=== PATIENT | female | born 1945 | race Caucasian/White ===

== ENCOUNTER 2018-05-09 08:52 | Day surgery (SDC) | payer BC ==
[2018-05-04 11:37] VITALS: BMI 28.3
[2018-05-09 10:11] LABS: BASO # 0.04 K/mm3 (0.0-2.0); BASO % 0.7 % (0.0-3.0); EOS # 0.1 (0.0-0.7); EOS % 2.1 % (1.5-5.0); HEMOGLOBIN 16.1 g/dL (12.0-16.0); LYMPH # 1.4 (1.2-3.4); LYMPH % 24.4 % (22.0-35.0); MEAN CELL VOLUME 86.2 fl (80.0-105.0); MEAN CORPUSCULAR HEMOGLOBIN 28.1 pg (25.0-35.0); MEAN CORPUSCULAR HGB CONC 32.7 g/dl (31.0-37.0); MEAN PLATELET VOLUME 8.6 fl (7.0-11.0); MONO # 0.2 (0.1-0.6); MONO % 3.7 % (1.0-6.0); RBC 5.72 10^6/uL (3.5-6.1); RED CELL DISTRIBUTION WIDTH 13.4 % (11.5-14.5); WHITE BLOOD COUNT 5.7 10^3/uL (4.5-11.0)
[2018-05-09 10:19] LABS: BLOOD UREA NITROGEN 15 mg/dL (7-21); CALCIUM 9.2 mg/dL (8.4-10.5); GFR NON-AFRICAN AMERICAN > 60
[2018-05-09 10:26] LABS: INR 1.07; PARTIAL THROMBOPLASTIN TIME 41.4 Seconds (26.9-38.3); PROTHROMBIN TIME 12.1 SECONDS (9.4-12.5)
[2018-05-09] MEDS ORDERED: Lidocaine 1% Inj (20ml) ONE (10:56)
[2018-05-09] MEDS ORDERED: Midazolam 2 MG/2 ML VIAL ONE (11:12)
[2018-05-09] MEDS ORDERED: Midazolam 5 MG/5 ML VIAL IVP ONE (11:55)
[2018-05-09] MEDS ORDERED: Oxycodone/Acetaminophen 5/325 mg Tab PO PRN (12:13)
[2018-05-09] MEDS ORDERED: Sodium Chloride 0.45% 1,000 ML IV SCH (12:15)
[2018-05-09 13:15] VITALS: RESP 20
[2018-05-09 13:23] VITALS: TEMP 97.8; O2SAT 96
--- NOTE | 2018-05-09 13:49 | RAD ---
Date of service: 05/09/2018 HISTORY: RLL lung Bx COMPARISON: No prior. TECHNIQUE: 1 view obtained. FINDINGS: LUNGS: No active pulmonary disease. PLEURA: No significant pleural effusion identified, no pneumothorax apparent. CARDIOVASCULAR: Aortic calcification Normal cardiac size. No pulmonary vascular congestion. OSSEOUS STRUCTURES: No significant abnormalities. VISUALIZED UPPER ABDOMEN: Normal. OTHER FINDINGS: None. IMPRESSION: No evidence of post biopsy pneumothorax
[2018-05-09 14:01] VITALS: BP 132/80; PULSE 66
--- NOTE | 2018-05-09 20:16 | CT ---
PROCEDURE: CT guided right lower lobe lung biopsy. HISTORY: Multiple small pulmonary nodules. Positive PET. Previous thyroid cancer. PHYSICIAN(S): Pranav Edouard MD. TECHNIQUE: The relative risks and indications of the procedure were explained to the patient and consent obtained. The patient was placed prone on the CT scanner and preliminary images through the lung bases obtained. Conscious sedation and monitoring were provided throughout the procedure by a nurse. Is a 19 mm noncalcified nodule in the right lower lobe posteriorly.. A right posterior approach was selected and the area prepped and draped in the usual sterile fashion. 1% Xylocaine was used to anesthetize the skin and soft tissues. A 19 gauge guiding needle was advanced into the 19 mm right lower lobe nodule. Its position was confirmed with CT. Using coaxial technique, multiple core biopsies were obtained. The postprocedure images show no evidence of large pneumothorax or significant hemorrhage.. IMPRESSION: 1. CT-guided right lower lobe lung biopsy as described above.
== END 2018-05-09 14:15 | disposition home or self-care (01) ==
LOC: SDS 08:52
PROVIDERS: ATTEND Radiology Vascular & Interventional Radiology
DX: C78.01 Secondary malignant neoplasm of right lung (principal); Z85.850 Personal history of malignant neoplasm of thyroid
CPT/HCPCS: 32405; 36415; 71045; 77012; 80048; 85025; 85610; 85730; 88305; J2250 ×2; J2405; J3010; J7030

== ENCOUNTER 2018-06-13 09:38 | Outpatient (CLI) | payer BC | END 2018-06-13 09:39 | disposition home or self-care (01) | LOC: CARDIO 09:38 | DX: Z85.850 Personal history of malignant neoplasm of thyroid (principal) ==